=== PATIENT | female | born 1975 | race Caucasian/White ===

== ENCOUNTER 2021-07-31 15:02 | Outpatient (CLI) | payer BC, SELFPAY ==
--- NOTE | 2021-07-31 15:22 | XR_ITS ---
WS: [id number] DEXA (DUAL ENERGY X-RAY ABSORPTIOMETRY) Bone mineral density was performed using a [employer] machine. HISTORY: HISTORY OF TRAUMATIC HIP FRACTURE COMPARISON: 10/09/2015 Lumbar spine BMD (L1-L4): 1.129 g/cm2 T score: -0.4 Z score: -0.8 Left forearm BMD: 0.949 g/cm2. T score: 0.8 Z score: 0.8 Compared to the prior study from 10/09/2015. Lumbar spine bone mineral density has increased by 0.4%. LEFT forearm bone mineral density has increased by 4.9%. XR/XR DEXA axial skeleton* [id number] IMPRESSION: Normal bone mineral density based upon the WHO classification for females. Mild improvement in bone mineral density within the LEFT forearm since the prio r study.
== END 2021-07-31 15:03 | disposition home or self-care (01) ==
LOC: RAD 15:08
PROVIDERS: PCP Internal Medicine; Visit Provider Internal Medicine
DX: Z87.81 Personal history of (healed) traumatic fracture (principal)
CPT/HCPCS: 77080

== ENCOUNTER 2022-07-25 06:00 | Outpatient (RCR) | payer BC, SELFPAY | END 2022-07-28 23:59 | disposition home or self-care (01) | LOC: SOT 06:00 | PROVIDERS: PCP Internal Medicine; Visit Provider Internal Medicine | DX: G82.20 Paraplegia, unspecified (principal); I10 Essential (primary) hypertension; D64.9 Anemia, unspecified | CPT/HCPCS: 97167; 97530 ==